=== PATIENT | female | born 1965 | race African-American/Black ===

== ENCOUNTER → 2019-03-23 | Outpatient (CLI) | payer OTHER ==
[~2019-03-23] MED LIST: CYCLOBENZAPRINE5 MG PO; IBUPROFEN 800800 MG PO; METFORMIN HCL500 MG PO; NORCO 10-325 T1 EACH PO; NORCO 5-325 TA1 EAC1 PO; TRIBENZOR 20-51 EACH PO
== END ==
LOC: MRI 03-20 11:13 → ULTRA 13:07
DX: E27.8 Other specified disorders of adrenal gland (principal); E04.1 Nontoxic single thyroid nodule; I10 Essential (primary) hypertension; E78.5 Hyperlipidemia, unspecified; E11.9 Type 2 diabetes mellitus without complications

== ENCOUNTER → 2019-04-10 | Outpatient (CLI) | payer OTHER ==
--- NOTE | 2019-04-13 11:07 | PATH ---
[facility] [place] [address] PATHOLOGY RPT PROCEDURE Name: ARNEL HURTADO Room #: REG [facility]..#: [id number] Admission: 04/10/19 Date of : 63 Discharge: Report #: [id number] Path Case #: [id number] Note [facility] Accession Number: [id number] TESTS RESULT FLAG UNITS REF RANGE LAB Clinician Provided Cytology Information No. of containers..01 Other (Miscellaneous) Source: LT THYROID NODULE DIAGNOSIS: 02 LEFT THYROID NODULE, FINE NEEDLE ASPIRATION NEGATIVE FOR MALIGNANT CELLS. BETHESDA CATEGORY II. SPECIMEN CONSISTS OF FOLLICULAR CELLS IN MACROFOLLICLES, MACROPHAGES, COLLOID, AND BLOOD. THIS PATTERN IS COMPATIBLE WITH A COLLOID NODULE. RED BLOOD CELLS ARE PRESENT. THIS INTERPRETATION INCLUDES EVALUATION OF A CELL BLOCK. NEGATIVE FOR NUCLEAR FEATURES OF PAPILLARY THYROID CARCINOMA. Comment: Please note sample may not be entirely advertising account representative; correlate clinically and follow-up as indicated. This case was coreviewed by Dr. Dianelys Collado who concurs with my diagnosis. Pathologist ICD10: 02 E04.1 Signed out by: Andressa Smith MD, Pathologist NPI- [id number] Performed by: Veronica Christian, Yield Loss Inspector ([facility]) Gross description: 01 20 ML, DORIAN, CLEAR /LCS 04/11/2019 1540 Local FLAG LEGEND: L-Low Normal,H-High Normal,LL-Alert Low,HH-Alert High <-Panic Low,>-Panic High,A-Abnormal,AA-Critical Abnormal Performed at: 01 [facility] [address] [place] [address] [address] [place] [address] Salvatore Rockwell MD, [address] [facility] [address] [address] Andressa Smith MD, Specimen Comment: [id number] [address] [address] PATHOLOGY RPT PROCEDURE Name: ARNEL HURTADO Room #: REG [facility] Chakraborty#: [id number] Admission: 04/10/19 Date of : 63 Discharge: Report #: [id number] Path Case #: [id number] Performed at: 01 [facility] [place] [address], [place], [place] [id number] MD Salvatore Rockwell MD Phone: [phone]
== END ==
LOC: ULTRA 12:31
DX: E04.1 Nontoxic single thyroid nodule (principal)